=== PATIENT | male | born 1980 | race Two or more races ===

== ENCOUNTER 2020-09-26 22:15 | Emergency (ER) | payer OTHER ==
[~2020-09-26] VITALS: Ht 172.7 cm; Wt 97.5 kg
== END 2020-09-26 23:40 | disposition home or self-care (01) ==
LOC: ER 22:15
DX: S61.411A Laceration without foreign body of right hand, initial encounter (principal); W26.0XXA Contact with knife, initial encounter; Y93.89 Activity, other specified; Y92.099 Unspecified place in other non-institutional residence as the place of occurrence of the external cause